=== PATIENT | male | born 1950 | race African-American/Black ===

== ENCOUNTER 2019-05-15 17:55 | Inpatient (IN) | payer OTHER, BC ==
[~2019-05-15] VITALS: Ht 177.8 cm; Wt 74.9 kg
[2019-05-15 18:01] VITALS: BP_SYST 111
--- NOTE | 2019-05-15 18:01 | NUR ---
Placed in room 3 . Placed on unloading checker, blood pressure machine and pulse oximeter. To gown for exam. Side rails up.
--- NOTE | 2019-05-15 18:05 | NUR ---
pt bib via ACLS for a possible 2 sec seizure, as stated per the pt's . Pt does not have a hx of seizures. PT is currently AAOx4. 02 is a 2l via NC. VSS. quality assurance monitor chassis placed.
--- NOTE | 2019-05-15 18:10 | NUR ---
ER Dr. Moise at bedside examining patient.
--- NOTE | 2019-05-15 18:40 | NUR ---
Urine specimen collected via straight cath and analyzed in ER. Results given to ER .
--- NOTE | 2019-05-15 19:00 | NUR ---
Patient transported to radiology via gurney, accompanied by straddle bug operator.
[2019-05-15 19:09] LABS: BASOPHILS % (AUTO) 0.2 % (0.0-2.0); EOSINOPHILS # (AUTO) 0.1 K/uL (0.0-0.4); EOSINOPHILS % (AUTO) 0.7 % (0.0-4.0); HEMATOCRIT 35.7 % (36-54); HEMOGLOBIN 11.9 g/dL (14.0-18.0); LYMPHOCYTES # (AUTO) 0.6 K/uL (1.0-5.5); LYMPHOCYTES % (AUTO) 3.8 % (20.5-51.5); MEAN CORPUSCULAR HEMOGLOBIN 30 pg (27-31); MEAN CORPUSCULAR HGB CONC 33 % (32-36); MEAN CORPUSCULAR VOLUME 89 fL (79.0-98.0); MONOCYTES # (AUTO) 0.8 K/uL (0.0-1.0); MONOCYTES % (AUTO) 4.8 % (1.7-9.3); NEUTROPHILS # (AUTO) 15.2 K/uL (1.8-7.7); NEUTROPHILS % (AUTO) 90.5 % (40.0-70.0); PLATELET COUNT (AUTO) 198 K/uL (130-430); RED BLOOD CELL COUNT(AUTO) 4.01 MIL/uL (4.2-6.2); RED CELL DISTRIBUTION WIDTH 14.3 % (9.0-15.0); WHITE BLOOD COUNT (AUTO) 16.8 K/uL (4.8-10.8)
--- NOTE | 2019-05-15 19:15 | NUR ---
pt returned for CT scan
--- NOTE | 2019-05-15 19:17 | NUR ---
report given to Saeed Nagel.
[2019-05-15 19:18] LABS: CALCIUM 8.2 mg/dL (8.4-11.0); CREATININE 1.83 mg/dL (0.55-1.30); POTASSIUM 3.3 mmol/L (3.5-5.1)
--- NOTE | 2019-05-15 19:25 | NUR ---
Wesley henriquez in ED - 05/15/19 at 1935 by [email or web address] Pt returned from CT
--- NOTE | 2019-05-15 19:35 | NUR ---
Family bedside with patient
[2019-05-15] MEDS ORDERED: cefTRIAXone 1 GM in D5W 50 ML IV ONE (20:00)
[2019-05-15] MEDS ORDERED: VANCOMYCIN HCL 1,000 MG in NS 250 ML IV ONE (20:00)
[2019-05-15] MEDS ORDERED: NACL 0.9% 1,000 ML IV ONE (20:00)
[2019-05-15 20:06] LABS: BILIRUBIN,URINE NEGATIVE (NEGATIVE); COLOR,URINE YELLOW (YELLOW); GLUCOSE,URINE NEGATIVE (NEGATIVE); KETONES,URINE NEGATIVE (NEGATIVE); LEUKOCYTE ESTERASE ,URINE 1+ (NEGATIVE); NITRITE, URINE POSITIVE (NEGATIVE); PH,URINE 5.5 (5.0-8.0); PROTEIN URINE TRACE (NEGATIVE); UROBILINOGEN,URINE 0.2 (0.2-1.0)
[2019-05-15 20:10] LABS: BLOOD, URINE TRACE (NEGATIVE)
[2019-05-15 20:11] LABS: CLARITY/URINE HAZY (CLEAR)
[2019-05-15 20:17] LABS: BACTERIA,URINE MANY /HPF (None Seen); RBC,URINE 0-3 /HPF (0-3)
[2019-05-15 20:18] LABS: MUCUS,URINE 1+ /LPF (None Seen)
[2019-05-15 20:20] LABS: BARBITURATE, URINE NEGATIVE (NEG <=200); BENZODIAZEPINE, URINE NEGATIVE (NEG <=150); CANNABINOID, URINE NEGATIVE (NEG <=50); COCAINE, URINE NEGATIVE (NEG <=150); METHAMPHETAMINES SCREEN,URINE NEGATIVE (NEG <=500); OPIATE, URINE POSITIVE (NEG <=100); PHENCYCLIDINE SCREEN,URINE NEGATIVE (NEG <=25); UR TRICYCLIC ANTIDEPRESSANTS NEGATIVE (NEG <=300); URINE AMPHETAMINE NEGATIVE (NEG <=500); URINE METHADONE NEGATIVE (NEG <=200); URINE OXYCODONE SCREEN NEGATIVE (NEG <=100); URINE PROPOXYPHENE SCREEN NEGATIVE (NEG <=300)
[2019-05-15] MEDS ORDERED: VANCOMYCIN HCL 1000 MG/VIAL IV ONE (20:28)
[2019-05-15] MEDS ORDERED: cefTRIAXone 1 GM VIAL ONE (20:29)
--- NOTE | 2019-05-15 20:44 | NUR ---
Pt resting in ED bed comfortably. Tolerating Fluids and Antibiotics well. No s/s Adverse effects.
[2019-05-15 20:45] LABS: TOTAL BILIRUBIN 0.5 mg/dL (0.0-1.0)
--- NOTE | 2019-05-15 21:33 | NUR ---
Pt resting in ED bed comfortably, no acute distress noted.
--- NOTE | 2019-05-15 22:40 | NUR ---
Pt Awake, alert, oriented. Assisted with urinal
--- NOTE | 2019-05-15 23:45 | NUR ---
Pt Family member Joanne Fischer Left phone number and informed staff that she will be going home. Will visit in the morning. [phone]
--- NOTE | 2019-05-16 00:12 | NUR ---
Pt assisted with urinal. Pt awake, alert, oriented no acute signs of distress.
--- NOTE | 2019-05-16 01:30 | NUR ---
Report Given to Vasquez (Jonathan)CELY
--- NOTE | 2019-05-16 01:30 | NUR ---
Patient will be admitted to care of [facility]. Admitted to Tele unit. Will go to room 130A. Belongings list completed. Complete and up to date summary report printed. SBAR report to be given at bedside with opportunity for questions.
--- NOTE | 2019-05-16 01:30 | NUR ---
Transfer to Telemetry via ACLS protocol. Licensed nurse present. IV present no signs or symptoms of infiltration.
--- NOTE | 2019-05-16 01:30 | NUR ---
ADMISSION NOTE Received patient from ER via gurney. Patient admitted with diagnosis of UROSEPSIS. Patient is awake, alert, oriented X 4. Patient oriented to hospital room, call light, toileting, pain management and safety-teach back done. Patient informed that BRIANNA JAVIER will be HIS nurse and that their room number is 130A. Personal belongings checked and Belongings List documented. Call light within reach.
--- NOTE | 2019-05-16 03:44 | NUR ---
PATIENT AWAKE ALERT USING THE URINAL NEEDED CALL VALDOVINOS WITH PATIENT .
--- NOTE | 2019-05-16 05:12 | NUR ---
NEW ORDERS FOR BLOOD SUGAR ACCU CHECKS AC & HS DR SUNNY CARR .
[2019-05-16 05:28] VITALS: BP_SYST 136
[2019-05-16] MEDS ORDERED: KCL 20 mEq in NS 1000 mL 1,000 ML IV ONE (06:49)
[2019-05-16] MEDS: KCL 20 mEq in NS 1000 mL 1,000 ML IV SCH ×3 (07:09→21:43)
[2019-05-16 07:20] LABS: BASOPHILS % (AUTO) 0.3 % (0.0-2.0); EOSINOPHILS # (AUTO) 0.3 K/uL (0.0-0.4); EOSINOPHILS % (AUTO) 2.4 % (0.0-4.0); HEMATOCRIT 29.8 % (36-54); HEMOGLOBIN 10.3 g/dL (14.0-18.0); LYMPHOCYTES # (AUTO) 1.6 K/uL (1.0-5.5); LYMPHOCYTES % (AUTO) 11.7 % (20.5-51.5); MEAN CORPUSCULAR HEMOGLOBIN 31 pg (27-31); MEAN CORPUSCULAR HGB CONC 35 % (32-36); MEAN CORPUSCULAR VOLUME 88 fL (79.0-98.0); MONOCYTES # (AUTO) 1.1 K/uL (0.0-1.0); MONOCYTES % (AUTO) 7.9 % (1.7-9.3); NEUTROPHILS # (AUTO) 10.7 K/uL (1.8-7.7); NEUTROPHILS % (AUTO) 77.7 % (40.0-70.0); PLATELET COUNT (AUTO) 186 K/uL (130-430); RED BLOOD CELL COUNT(AUTO) 3.37 MIL/uL (4.2-6.2); RED CELL DISTRIBUTION WIDTH 14.2 % (9.0-15.0); WHITE BLOOD COUNT (AUTO) 13.8 K/uL (4.8-10.8)
[2019-05-16 08:00] VITALS: BP_SYST 141
--- NOTE | 2019-05-16 08:00 | NUR ---
Note Pt sitting up in bed for breakfast. No SOB/resp distress or pain/discomfort was noted at this time. IV in left AC intact and patent infusing IVF's well. Urinal within reach. Tele unit attached and intact at this time. Call light within reach.
[2019-05-16 08:15] LABS: ALBUMIN 2.6 g/dL (3.4-4.8); CALCIUM 8.2 mg/dL (8.4-11.0); CREATININE 1.6 mg/dL (0.55-1.30); POTASSIUM 3.3 mmol/L (3.5-5.1); TOTAL BILIRUBIN 0.4 mg/dL (0.0-1.0)
[2019-05-16] MEDS: CEFEPIME 1 GM in D5W 50 ML IV SCH ×2 (08:42→21:36)
[2019-05-16 11:55] VITALS: BP_SYST 123
--- NOTE | 2019-05-16 12:00 | NUR ---
Note Pt resting in bed with family (4-5 family members) at bedside visiting at this time. Pt denies any needs at this time. Call light within reach.
[2019-05-16 16:00] VITALS: BP_SYST 117
--- NOTE | 2019-05-16 16:00 | NUR ---
Note Pt was seen and assessed by Dr Saez at this time at bedside. No needs noted. Pt's family all at bedside at this time. Call light within reach.
[2019-05-16] MEDS ORDERED: LYR50 PO ×2 (16:05)
[2019-05-16] MEDS ORDERED: LIP40 PO (16:05)
[2019-05-16] MEDS ORDERED: LEVO25TA7 PO (16:05)
[2019-05-16] MEDS ORDERED: HYDR12.55 PO (16:05)
[2019-05-16] MEDS ORDERED: LevALBUTEROL HCL 1.25 MG/0.5 ML *CONC.* VIAL.NEB (XOPENEX CONC.) INH PRN ×2 (16:15)
[2019-05-16] MEDS ORDERED: ACETAMINOPHEN 325 MG TABLET PO PRN (16:15)
[2019-05-16 17:58] VITALS: BP_SYST 123
--- NOTE | 2019-05-16 18:34 | NUR ---
Note Pt up with minimal assist to restroom. Pt's at bedside a this time. Pt was checked on q1' and PRN all shift for needs and care. No SOB/resp distress or pain/discomfort noted a this time. IV in left AC intact and patent infusing IVF's well. Call light within reach.
--- NOTE | 2019-05-16 19:35 | NUR ---
ROUNDS PATIENT RESTING COMFORTABLY IN BED, VITALS STABLE, DENIES ANY PAIN AND DISCOMFORT AT THIS TIME. ASSESSMENT DONE AND DOCUEMNTED. SEE FLOWSHEET. NEEDS ATTENDED TO. SAFETY MEASURES IN PLACED. CALL LIGHT PLACED WITHIN REACH.
[2019-05-16 20:00] VITALS: BP_SYST 142
--- NOTE | 2019-05-16 21:14 | NUR ---
MEDICATIONS DUE MEDICATIONS GIVE SCHEDULED, TOLERATED WELL. WILL CONTINUE TO MONITOR.
[2019-05-16] MEDS: PREGABALIN 25 MG CAPSULE (LYRICA) PO SCH (21:35)
[2019-05-16] MEDS: ATORVASTATIN 20 MG TABLET PO SCH (21:35)
[2019-05-16] MEDS: ENOXAPARIN SODIUM 30 MG/0.3 ML SYRINGE SUBCUT SCH (21:37)
[2019-05-16] MEDS: INSULIN REGULAR, HUMAN 100 UNITS/ML, 10 ML VIAL (humuLIN R) SUBCUT PRN (22:08)
[2019-05-16] MEDS ORDERED: LevALBUTEROL HCL 1.25 MG/0.5 ML *CONC.* VIAL.NEB (XOPENEX CONC.) INH SCH (23:00)
[2019-05-16] MEDS: LevALBUTEROL HCL 1.25 MG/0.5 ML *CONC.* VIAL.NEB (XOPENEX CONC.) INH SCH (23:52)
[2019-05-17] VITALS: BP_SYST 136
--- NOTE | 2019-05-17 00:16 | NUR ---
PATIENT RESTING: Patient resting quietly. No acute distress noted. Vital signs within normal range.
--- NOTE | 2019-05-17 04:17 | NUR ---
PATIENT RESTING: Patient resting quietly. No acute distress noted. Vital signs within normal range.
[2019-05-17] MEDS: LEVOTHYROXINE SODIUM 0.025 MG TABLET PO SCH (06:27)
--- NOTE | 2019-05-17 06:40 | NUR ---
CLOSING NOTES PATIENT AWAKE, VITALS STABLE, NO COMPLAINTS AT THIS TIME. ALL NEEDS ATTENDED TO. SAFETY MEASURES MAINTAINED. CALL LIGHT PLACED WITHIN REACH.
[2019-05-17 07:01] LABS: BASOPHILS % (AUTO) 0.3 % (0.0-2.0); EOSINOPHILS # (AUTO) 0.2 K/uL (0.0-0.4); HEMATOCRIT 27.9 % (36-54); HEMOGLOBIN 9.7 g/dL (14.0-18.0); LYMPHOCYTES # (AUTO) 1.1 K/uL (1.0-5.5); LYMPHOCYTES % (AUTO) 12.7 % (20.5-51.5); MEAN CORPUSCULAR HEMOGLOBIN 31 pg (27-31); MEAN CORPUSCULAR HGB CONC 35 % (32-36); MEAN CORPUSCULAR VOLUME 88 fL (79.0-98.0); MONOCYTES # (AUTO) 0.6 K/uL (0.0-1.0); MONOCYTES % (AUTO) 7.2 % (1.7-9.3); NEUTROPHILS # (AUTO) 6.9 K/uL (1.8-7.7); NEUTROPHILS % (AUTO) 77.8 % (40.0-70.0); PLATELET COUNT (AUTO) 151 K/uL (130-430); RED BLOOD CELL COUNT(AUTO) 3.17 MIL/uL (4.2-6.2); RED CELL DISTRIBUTION WIDTH 14.2 % (9.0-15.0); WHITE BLOOD COUNT (AUTO) 8.8 K/uL (4.8-10.8)
[2019-05-17] MEDS: LevALBUTEROL HCL 1.25 MG/0.5 ML *CONC.* VIAL.NEB (XOPENEX CONC.) INH SCH ×3 (07:10→23:20)
[2019-05-17 07:22] LABS: CREATININE 1.53 mg/dL (0.55-1.30); POTASSIUM 3.5 mmol/L (3.5-5.1)
[2019-05-17 08:00] VITALS: BP_SYST 143
[2019-05-17] MEDS: KCL 20 mEq in NS 1000 mL 1,000 ML IV SCH ×2 (08:00→17:46)
--- NOTE | 2019-05-17 08:00 | NUR ---
Note Pt assisted OOB to restroom with steady gait. Pt denies any SOB/resp distress or pain/discomfort at this time. Tele unit attached and intact at this time. IV in right hand intact and patent infusing IVF's well. Pt had poor appetite for breakfast at this time. No needs noted. Call light within reach.
[2019-05-17] MEDS: CEFEPIME 1 GM in D5W 50 ML IV SCH ×2 (08:41→22:26)
[2019-05-17] MEDS: PREGABALIN 25 MG CAPSULE (LYRICA) PO SCH ×2 (08:41→22:17)
--- NOTE | 2019-05-17 11:55 | NUR ---
Note Pt resting in bed eating brought in by his and son, who are at bedside visiting at this time. Pt denies any needs at this time. Call light within reach.
[2019-05-17 12:36] VITALS: BP_SYST 136
--- NOTE | 2019-05-17 15:10 | NUR ---
Note Pt resting in bed and denies any needs at this time. Call light within reach.
--- NOTE | 2019-05-17 16:10 | NUR ---
Note Dr Saez at bedside and answering questions/concerns at this time. Pt's tele unit was dc'd and returned to cardiac monitor. Pt's and daughter at bedside visiting for the last 4 hours. Pt denies any SOB/resp distress or pain/discomfort at this time. Call light within reach.
[2019-05-17 16:45] VITALS: BP_SYST 130
--- NOTE | 2019-05-17 18:15 | NUR ---
Note Pt was checked on q1' and PRN all shift for needs and care. IV in right hand intact and patent infusing IVF's well. Pt ambulatory to restroom with IV pole. No SOB/resp distress or pain/discomfort noted at this time. No needs noted at this time. Call light within reach.
[2019-05-17 20:00] VITALS: BP_SYST 135
--- NOTE | 2019-05-17 22:00 | NUR ---
PT RECIEVED ALARM AND ORIENTED X3 .PT HAVE NS AT 100CC/HR . PT TOOK FLU SHORTH , VITAL SIGN STABLE . WILL CONTINUE TO MONITOR PT .
[2019-05-17] MEDS: ATORVASTATIN 20 MG TABLET PO SCH (22:15)
[2019-05-17] MEDS: ENOXAPARIN SODIUM 30 MG/0.3 ML SYRINGE SUBCUT SCH (22:19)
--- NOTE | 2019-05-18 | NUR ---
PT SLEEPING . IV FEEL OUT HIS HAND , HEPLOCK REINSERTED . IV FLUID CONTINUE.
[2019-05-18 00:23] VITALS: BP_SYST 112
[2019-05-18] MEDS: LEVOTHYROXINE SODIUM 0.025 MG TABLET PO SCH (06:39)
[2019-05-18 07:37] LABS: BASOPHILS % (AUTO) 0.3 % (0.0-2.0); EOSINOPHILS # (AUTO) 0.1 K/uL (0.0-0.4); EOSINOPHILS % (AUTO) 0.9 % (0.0-4.0); HEMATOCRIT 29.8 % (36-54); HEMOGLOBIN 10.2 g/dL (14.0-18.0); LYMPHOCYTES # (AUTO) 1.1 K/uL (1.0-5.5); LYMPHOCYTES % (AUTO) 11.2 % (20.5-51.5); MEAN CORPUSCULAR HEMOGLOBIN 30 pg (27-31); MEAN CORPUSCULAR HGB CONC 34 % (32-36); MEAN CORPUSCULAR VOLUME 89 fL (79.0-98.0); MONOCYTES # (AUTO) 0.5 K/uL (0.0-1.0); MONOCYTES % (AUTO) 5.3 % (1.7-9.3); NEUTROPHILS # (AUTO) 8.5 K/uL (1.8-7.7); NEUTROPHILS % (AUTO) 82.3 % (40.0-70.0); PLATELET COUNT (AUTO) 181 K/uL (130-430); RED BLOOD CELL COUNT(AUTO) 3.36 MIL/uL (4.2-6.2); RED CELL DISTRIBUTION WIDTH 14.3 % (9.0-15.0); WHITE BLOOD COUNT (AUTO) 10.3 K/uL (4.8-10.8)
[2019-05-18 07:47] LABS: CALCIUM 7.9 mg/dL (8.4-11.0); CREATININE 1.52 mg/dL (0.55-1.30); POTASSIUM 3.5 mmol/L (3.5-5.1)
[2019-05-18] MEDS: LevALBUTEROL HCL 1.25 MG/0.5 ML *CONC.* VIAL.NEB (XOPENEX CONC.) INH SCH ×3 (07:52→23:16)
[2019-05-18 08:00] VITALS: BP_SYST 116
--- NOTE | 2019-05-18 08:00 | NUR ---
ASSUMPTION OF CARE: RECEIVED PT ASLEEP, EASILY AROUSED VIA VERBAL STIMULI, DX:RISK FOR FLUID DEFICIT, R/T UROSEPSIS, VSS, AFEBRILE, ORIENTED X4, BREATH SOUNDS ARE CLEAR, BREATHING UNLABORED, IV SITE INTACT, PATENT, NO REDNESS OR SWELLING, CALL LIGHT PLACED WITHIN REACH, WILL CONT' WITH POC.`
--- NOTE | 2019-05-18 08:00 | NUR ---
GLUCOSE MONITORING: BLOOD SUGAR [id number], 2 UNITS REGULAR INSULIN GIVEN SQ, TOLERATING WELL, AT BEDSIDE, CALL LIGHT PLACED WITHIN REACH, WILL CONT' TO MONITOR AND ASSESS. Addendum: 05/18/19 at 1631 by Danielle Acosta RN WRONG TIME
--- NOTE | 2019-05-18 09:00 | NUR ---
ACADEMIC ADVISOR: MORNING MEDS GIVEN, PER ORDERED BY Niurka, TOLERATED WELL, WILL CONT' WITH POC.
[2019-05-18] MEDS: PREGABALIN 25 MG CAPSULE (LYRICA) PO SCH ×2 (10:19→21:51)
[2019-05-18] MEDS: CEFEPIME 1 GM in D5W 50 ML IV SCH ×2 (10:20→21:53)
[2019-05-18] MEDS: KCL 20 mEq in NS 1000 mL 1,000 ML IV SCH ×2 (10:24→23:00)
--- NOTE | 2019-05-18 11:30 | NUR ---
GLUCOSE MONITORING: BLOOD SUGAR EYOKO=127, 2 UNITS REGULAR INSULIN GIVEN SQ, TOLERATING WELL, AT BEDSIDE, CALL LIGHT PLACED WITHIN REACH, WILL CONT' TO MONITOR AND ASSESS.
[2019-05-18] MEDS: INSULIN REGULAR, HUMAN 100 UNITS/ML, 10 ML VIAL (humuLIN R) SUBCUT PRN ×2 (11:35→17:59)
[2019-05-18 12:49] VITALS: BP_SYST 112
--- NOTE | 2019-05-18 16:00 | NUR ---
NURSES NOTES: PT RESTING IN POSITION OF COMFORT, AT BEDSIDE, CALL LIGHT WITHIN REACH, NO C/O PAIN, NO S/S OF DISTRESS, WILL CONT' TO MONITOR.
[2019-05-18 16:47] VITALS: BP_SYST 108
[2019-05-18 20:00] VITALS: BP_SYST 100
[2019-05-18] MEDS: ENOXAPARIN SODIUM 30 MG/0.3 ML SYRINGE SUBCUT SCH (21:49)
[2019-05-18] MEDS: ATORVASTATIN 20 MG TABLET PO SCH (21:52)
--- NOTE | 2019-05-18 22:00 | NUR ---
pt recieved awake alert and oriented . skin intakect . vital sign stable . pt getting ivns 100cc/hr . pt have no c/o pain `. pt will be monitored for pain
[2019-05-18] MEDS ORDERED: MEROPENEM 500 MG in NS 50 ML IV SCH (22:30)
--- NOTE | 2019-05-19 | NUR ---
pt sleeping . continue to monitor pt for confort .
--- NOTE | 2019-05-19 04:14 | NUR ---
pt awake , no c/o pain iv ns 20kcl potassium 100cc/hr. vital sign monitored .
[2019-05-19] MEDS ORDERED: MEROPENEM 500 MG in NS 50 ML IV SCH (06:00)
[2019-05-19] MEDS: LEVOTHYROXINE SODIUM 0.025 MG TABLET PO SCH (07:02)
[2019-05-19] MEDS: LevALBUTEROL HCL 1.25 MG/0.5 ML *CONC.* VIAL.NEB (XOPENEX CONC.) INH SCH ×2 (07:32→15:36)
[2019-05-19 08:00] VITALS: BP_SYST 102
--- NOTE | 2019-05-19 09:00 | NUR ---
RIDING COACH: MORNING MEDS GIVEN, PER ORDERED BY Niurka, TOLERATED WELL, WILL CONT' WITH POC.
[2019-05-19] MEDS: PREGABALIN 25 MG CAPSULE (LYRICA) PO SCH (10:05)
[2019-05-19] MEDS: KCL 20 mEq in NS 1000 mL 1,000 ML IV SCH ×2 (10:05)
--- NOTE | 2019-05-19 12:00 | NUR ---
GLUCOSE MONITORING: BLOOD SUGAR XCDCL=[id number], NO COVERAGE REQUIRED, EATING AND TOLERATING DIET WELL, AT BEDSIDE, CALL LIGHT PLACED WITHIN REACH, WILL CONT' TO MONITOR AND ASSESS.
[2019-05-19 12:40] VITALS: BP_SYST 107
--- NOTE | 2019-05-19 13:00 | NUR ---
VISIT: AT BEDSIDE FOR ASSESSMENT OF PT, DISCUSSED POC, PT VERBALIZES UNDERSTANDING, INSIDE ROOM VISITING WITH , INFORM OF TX PLAN AT THIS TIME, WILL CONT' TO MONITOR AND ASSESS.
--- NOTE | 2019-05-19 16:09 | NUR ---
DC PLANNING: DC PLAN TO SNF. CM SPOKE WITH PATIENT AND PATIENT'S AT BEDSIDE (ADDIE) REGARDING DC TO SNF ([facility]). PATIENT AND PT'S STATED DR. CORREA HAD ALREADY DISCUSSED WITH THEM REGARDING SNF FOR SHORT TERM. PT AND PT'S AGREED TO THE DISCHARGE TO SNF ([facility]) TODAY. RUG DRY ROOM ATTENDANT WILL CALL FOR EARLY DINNER FOR PATIENT AND SETUP BLS TRANSPORTATION. SPOKE WITH DANG (COST ESTIMATING ENGINEER @ [facility]) , PATIENT IS ACCEPTED AND ROOM NUMBER IS 48 ISOLATION BED.
[2019-05-19 16:42] VITALS: BP_SYST 113
--- NOTE | 2019-05-19 18:00 | NUR ---
DISCHARGE: PT DISCHARGED TO [facility], REPORT GIVEN TO NURSE ULICES TA, WILL GO TO ROOM 48, AT BEDSIDE AND NOTIFIED OF TRANSFER, EMT AT BEDSIDE FOR TRANSPORT TO FACILITY, CONDITION IS STABLE, ALL BELONGINGS ACCOUNTED FOR AND RETURNED TO PT, WILL CONT' TO MONITOR AND ASSESS.
== END 2019-05-19 18:15 | DRG 871 ==
LOC: SED 17:55 → STU 05-16 01:30 → SMU 05-17 16:10
PROVIDERS: ADMIT Family Medicine; ATTEND Family Medicine
DX: A41.9 Sepsis, unspecified organism (principal); G93.41 Metabolic encephalopathy; N17.0 Acute kidney failure with tubular necrosis; N39.0 Urinary tract infection, site not specified; D64.9 Anemia, unspecified; J44.9 Chronic obstructive pulmonary disease, unspecified; E86.0 Dehydration; F17.210 Nicotine dependence, cigarettes, uncomplicated; Z85.46 Personal history of malignant neoplasm of prostate; Z85.528 Personal history of other malignant neoplasm of kidney; Z90.5 Acquired absence of kidney; Z79.899 Other long term (current) drug therapy
CPT/HCPCS: 36415; 70450-TC; 71045; 80048; 80053; 80307; 81000-TC; 82962; 83605; 83735-TC; 83880; 84484; 85025; 87040-TC; 87086; 87186-TC; 93005; 94640; 94760; 96365; 96366; 96367; 97116-GP; 99285; G0378; J0692; J0696; J1650; J1815; J2185; J3370; J3480; J7060; J7612

== ENCOUNTER 2019-08-05 05:37 | Inpatient (IN) | payer OTHER, BC ==
[~2019-08-05] VITALS: Ht 180.3 cm; Wt 76.7 kg
[~2019-08-05 05:37] MED LIST: HYDR12.55 PO; LEVO25TA7 PO; LIP40 PO; LYR50 PO
[2019-08-05 05:50] VITALS: BP_SYST 100
[2019-08-05] MEDS ORDERED: MORPHINE 4 MG/ML INJ. SYRINGE IVP ONE (06:30)
[2019-08-05] MEDS ORDERED: TRAM50TA2 PO (08:29)
[2019-08-05 09:01] LABS: BASOPHILS # (AUTO) 0.1 K/uL (0.0-0.2); BASOPHILS % (AUTO) 0.5 % (0.0-2.0); EOSINOPHILS # (AUTO) 1.5 K/uL (0.0-0.4); EOSINOPHILS % (AUTO) 12.7 % (0.0-4.0); HEMATOCRIT 35.1 % (36-54); HEMOGLOBIN 11.7 g/dL (14.0-18.0); LYMPHOCYTES # (AUTO) 1.2 K/uL (1.0-5.5); LYMPHOCYTES % (AUTO) 10.4 % (20.5-51.5); MEAN CORPUSCULAR HEMOGLOBIN 31 pg (27-31); MEAN CORPUSCULAR HGB CONC 34 % (32-36); MEAN CORPUSCULAR VOLUME 91 fL (79.0-98.0); MONOCYTES # (AUTO) 0.6 K/uL (0.0-1.0); MONOCYTES % (AUTO) 5.1 % (1.7-9.3); NEUTROPHILS # (AUTO) 8.3 K/uL (1.8-7.7); NEUTROPHILS % (AUTO) 71.3 % (40.0-70.0); PLATELET COUNT (AUTO) 146 K/uL (130-430); RED BLOOD CELL COUNT(AUTO) 3.84 MIL/uL (4.2-6.2); RED CELL DISTRIBUTION WIDTH 15.6 % (9.0-15.0); WHITE BLOOD COUNT (AUTO) 11.6 K/uL (4.8-10.8)
[2019-08-05 09:21] LABS: ALBUMIN 3.3 g/dL (3.4-4.8); CALCIUM 9.2 mg/dL (8.4-11.0); CREATININE 1.93 mg/dL (0.55-1.30); POTASSIUM 3.9 mmol/L (3.5-5.1); TOTAL BILIRUBIN 0.3 mg/dL (0.0-1.0)
[2019-08-05] MEDS ORDERED: MORPHINE 2 MG/ML INJ. SYRINGE IVP PRN (10:30)
[2019-08-05 11:16] VITALS: BP_SYST 119
[2019-08-05] MEDS ORDERED: INSU100V3 SQ (13:16)
[2019-08-05] MEDS ORDERED: ONDANSETRON HCL 4 MG/2 ML VIAL IVP PRN (13:30)
[2019-08-05] MEDS ORDERED: ACETAMINOPHEN 325 MG TABLET PO PRN (13:30)
[2019-08-05] MEDS ORDERED: HYDROcodone/ACETAMIN 5-325 MG TAB (NORCO/ VICODIN) PO PRN (13:30)
[2019-08-05] MEDS ORDERED: IPRATROPIUM/ALBUTEROL SULFATE 3 ML AMPUL.NEB (DUONEB) INH PRN (13:45)
[2019-08-05] MEDS ORDERED: ZOLPIDEM TARTRATE 5 MG TABLET PO PRN (13:45)
[2019-08-05] MEDS ORDERED: D5W 1,000 ML IV PRN (14:00)
[2019-08-05] MEDS ORDERED: DEXTROSE 50%-WATER 50 ML DISP.SYRIN IVP PRN (14:00)
[2019-08-05] MEDS ORDERED: GLUCOSE 15 GM GEL (in 37.5 GM TUBE) PO PRN (14:00)
[2019-08-05 14:13] VITALS: BP_SYST 119
[2019-08-05 16:00] VITALS: BP_SYST 104
[2019-08-05] MEDS: INSULIN NPH/REGULAR 70-30, 100 UNITS/ML, 10 ML VIAL SUBCUT SCH (16:27)
[2019-08-05 20:00] VITALS: BP_SYST 109
[2019-08-05] MEDS: INSULIN LISPRO SLIDING SCALE 100 UNITS/ML VIAL (humaLOG) SUBCUT PRN (20:16)
[2019-08-05] MEDS ORDERED: INSULIN Lispro Prot/Lispro MIX 75-25, 100 UNITS/ML, 10 ML VIAL SQ SCH (21:00)
[2019-08-06 00:30] VITALS: BP_SYST 105
[2019-08-06] MEDS: LEVOTHYROXINE SODIUM 0.05 MG TABLET PO SCH (06:02)
[2019-08-06] MEDS: INSULIN NPH/REGULAR 70-30, 100 UNITS/ML, 10 ML VIAL SUBCUT SCH ×2 (06:06→18:03)
[2019-08-06] MEDS: INSULIN LISPRO SLIDING SCALE 100 UNITS/ML VIAL (humaLOG) SUBCUT PRN ×2 (06:09→18:04)
[2019-08-06 06:43] LABS: CALCIUM 9.1 mg/dL (8.4-11.0); CREATININE 1.71 mg/dL (0.55-1.30); POTASSIUM 3.9 mmol/L (3.5-5.1)
[2019-08-06 08:00] VITALS: BP_SYST 100
[2019-08-06] MEDS: PREGABALIN 25 MG CAPSULE (LYRICA) PO SCH (08:26)
[2019-08-06] MEDS: FAMOTIDINE 20 MG TABLET PO SCH (08:26)
[2019-08-06 12:33] VITALS: BP_SYST 100
[2019-08-06 16:54] VITALS: BP_SYST 107
[2019-08-06 20:00] VITALS: BP_SYST 95
[2019-08-07 01:44] VITALS: BP_SYST 104
[2019-08-07] MEDS: LEVOTHYROXINE SODIUM 0.05 MG TABLET PO SCH (06:41)
[2019-08-07] MEDS: INSULIN NPH/REGULAR 70-30, 100 UNITS/ML, 10 ML VIAL SUBCUT SCH ×2 (06:45→17:18)
[2019-08-07 08:00] VITALS: BP_SYST 104
[2019-08-07] MEDS: FAMOTIDINE 20 MG TABLET PO SCH (08:13)
[2019-08-07] MEDS: PREGABALIN 25 MG CAPSULE (LYRICA) PO SCH (08:13)
[2019-08-07 13:06] VITALS: BP_SYST 107
[2019-08-07 16:19] VITALS: BP_SYST 102
[2019-08-07] MEDS: INSULIN LISPRO SLIDING SCALE 100 UNITS/ML VIAL (humaLOG) SUBCUT PRN (17:22)
[2019-08-07 20:00] VITALS: BP_SYST 101
[2019-08-08 00:24] VITALS: BP_SYST 106
[2019-08-08] MEDS: LEVOTHYROXINE SODIUM 0.05 MG TABLET PO SCH (06:35)
[2019-08-08] MEDS: INSULIN NPH/REGULAR 70-30, 100 UNITS/ML, 10 ML VIAL SUBCUT SCH (06:47)
[2019-08-08 08:00] VITALS: BP_SYST 102
[2019-08-08] MEDS: FAMOTIDINE 20 MG TABLET PO SCH (09:10)
[2019-08-08] MEDS: PREGABALIN 25 MG CAPSULE (LYRICA) PO SCH (09:10)
[2019-08-08 12:16] VITALS: BP_SYST 93
[2019-08-08 12:19] VITALS: BP_SYST 93
== END 2019-08-08 14:20 | disposition home health service (06) | DRG 535 ==
LOC: SED 05:37 → STU 10:50 → SMU 08-06 20:44
PROVIDERS: ADMIT Internal Medicine; ATTEND Internal Medicine
DX: S72.112A Displaced fracture of greater trochanter of left femur, initial encounter for closed fracture (principal); N17.0 Acute kidney failure with tubular necrosis; E03.9 Hypothyroidism, unspecified; E11.22 Type 2 diabetes mellitus with diabetic chronic kidney disease; E78.5 Hyperlipidemia, unspecified; F17.210 Nicotine dependence, cigarettes, uncomplicated; G89.29 Other chronic pain; M54.5 Low back pain; W18.39XA Other fall on same level, initial encounter; I12.9 Hypertensive chronic kidney disease with stage 1 through stage 4 chronic kidney disease, or unspecified chronic kidney disease; N18.9 Chronic kidney disease, unspecified; Z85.46 Personal history of malignant neoplasm of prostate; Z85.51 Personal history of malignant neoplasm of bladder; Z79.899 Other long term (current) drug therapy; Z85.528 Personal history of other malignant neoplasm of kidney; Z90.5 Acquired absence of kidney; Y93.89 Activity, other specified; Y92.89 Other specified places as the place of occurrence of the external cause; Y99.8 Other external cause status
CPT/HCPCS: 36415; 71045; 72192-TC; 73521; 80048; 80053; 82550-TC; 82962; 85025; 87081; 93005; 96374; 97110-GP; 97530-GP; 99285; G0378; J1815; J2270

== ENCOUNTER 2020-06-09 14:46 | Emergency (ER) | payer OTHER, BC, SELFPAY ==
[~2020-06-09] VITALS: Ht 180.3 cm; Wt 72.6 kg
[~2020-06-09 14:46] MED LIST changes: +INSU100V3 SQ
[2020-06-09 14:50] VITALS: BP_SYST 113
--- NOTE | 2020-06-09 14:50 | NUR ---
PT TO BED 6, GOWNED ATTACHED TO MONITOR
--- NOTE | 2020-06-09 14:55 | NUR ---
ER DR. BERNAL AT THE BEDSIDE EVALUATING PT
--- NOTE | 2020-06-09 15:00 | NUR ---
PT BIBA AFTER HAVING [facility] AT HOME WITH LOC AND LOW BP ON SCENE 80/40. PT PRESENTS AAOX4, V/S STABLE
--- NOTE | 2020-06-09 15:32 | NUR ---
LAB AT THE BEDSIDE FOR BLOOD DRAW
[2020-06-09 15:49] LABS: BASOPHILS # (AUTO) 0.1 K/uL (0.0-0.2); BASOPHILS % (AUTO) 0.9 % (0.0-2.0); EOSINOPHILS # (AUTO) 1.2 K/uL (0.0-0.4); EOSINOPHILS % (AUTO) 17.3 % (0.0-4.0); HEMATOCRIT 29.6 % (36-54); HEMOGLOBIN 10.1 g/dL (14.0-18.0); LYMPHOCYTES # (AUTO) 0.6 K/uL (1.0-5.5); LYMPHOCYTES % (AUTO) 8.5 % (20.5-51.5); MEAN CORPUSCULAR HEMOGLOBIN 31 pg (27-31); MEAN CORPUSCULAR HGB CONC 34 % (32-36); MEAN CORPUSCULAR VOLUME 89 fL (79.0-98.0); MONOCYTES # (AUTO) 0.4 K/uL (0.0-1.0); MONOCYTES % (AUTO) 5.5 % (1.7-9.3); NEUTROPHILS # (AUTO) 4.7 K/uL (1.8-7.7); NEUTROPHILS % (AUTO) 67.8 % (40.0-70.0); PLATELET COUNT (AUTO) 194 K/uL (130-430); RED BLOOD CELL COUNT(AUTO) 3.31 MIL/uL (4.2-6.2); RED CELL DISTRIBUTION WIDTH 14.5 % (9.0-15.0); WHITE BLOOD COUNT (AUTO) 6.9 K/uL (4.8-10.8)
[2020-06-09 16:00] LABS: CALCIUM 8.9 mg/dL (8.4-11.0); CREATININE 1.89 mg/dL (0.55-1.30); POTASSIUM 3.4 mmol/L (3.5-5.1)
[2020-06-09 16:07] LABS: TOTAL BILIRUBIN 0.2 mg/dL (0.0-1.0)
--- NOTE | 2020-06-09 16:32 | NUR ---
Patient transported to radiology via GURNEY, accompanied by STAFF.
[2020-06-09 17:38] VITALS: BP_SYST 130
== END 2020-06-09 17:40 | disposition home or self-care (01) ==
LOC: SED 14:46
DX: R55 Syncope and collapse (principal); Z85.46 Personal history of malignant neoplasm of prostate; Z20.822 Contact with and (suspected) exposure to COVID-19
CPT/HCPCS: 36415; 70450-TC; 71045; 72170-TC; 76376; 80053; 82550-TC; 83880; 84484; 85025; 93005; 99285

== ENCOUNTER 2021-12-17 10:55 | Inpatient (IN) | payer OTHER, BC ==
[2021-12-17] VITALS (11 sets, daily range): BP systolic 70–118
[~2021-12-17] VITALS: Ht 175.3 cm; Wt 67.6 kg
[2021-12-17] MEDS ORDERED: NACL 0.9% 2,000 ML IV ONE (11:00)
[2021-12-17 11:18] LABS: BASOPHILS % (AUTO) 0.1 % (0.0-2.0); EOSINOPHILS % (AUTO) 0.2 % (0.0-4.0); HEMATOCRIT 34.4 % (36-54); HEMOGLOBIN 11.5 g/dL (14.0-18.0); LYMPHOCYTES # (AUTO) 0.5 K/uL (1.0-5.5); LYMPHOCYTES % (AUTO) 2.9 % (20.5-51.5); MEAN CORPUSCULAR HEMOGLOBIN 31 pg (27-31); MEAN CORPUSCULAR HGB CONC 33 % (32-36); MEAN CORPUSCULAR VOLUME 92 fL (79.0-98.0); MONOCYTES # (AUTO) 0.7 K/uL (0.0-1.0); NEUTROPHILS # (AUTO) 17.2 K/uL (1.8-7.7); NEUTROPHILS % (AUTO) 92.8 % (40.0-70.0); PLATELET COUNT (AUTO) 124 K/uL (130-430); RED BLOOD CELL COUNT(AUTO) 3.73 MIL/uL (4.2-6.2); RED CELL DISTRIBUTION WIDTH 15.8 % (9.0-15.0); WHITE BLOOD COUNT (AUTO) 18.6 K/uL (4.8-10.8)
[2021-12-17 11:34] LABS: ANION GAP 15 (5-15); CHLORIDE 103 mmol/L (98-107); CREATININE 2.72 mg/dL (0.55-1.30); GLUCOSE 199 mg/dL (70-99); POTASSIUM 3.8 mmol/L (3.5-5.1); SODIUM SERUM 135 mmol/L (136-145); UREA NITROGEN, BLOOD 33 mg/dL (8-21)
[2021-12-17 11:45] LABS: ALANINE AMINOTRANSFERASE 146 U/L (12-78); ALBUMIN 2.4 g/dL (3.4-4.8); ASPARTATE AMINOTRANSFERASE 149 U/L (10-37); LIPASE 16 U/L (73-393); TOTAL BILIRUBIN 1.1 mg/dL (0.0-1.0)
[2021-12-17] MEDS ORDERED: PIPERACILLIN/TAZO 3.375 GM in NS 50 ML IV ONE (12:00)
[2021-12-17] MEDS ORDERED: VANCOMYCIN HCL 1,000 MG in NS 250 ML IV ONE (12:00)
[2021-12-17] MEDS ORDERED: NOREPINEPHRINE BITARTRATE 4 MG in NS 246 ML IV ONE (12:15)
[2021-12-17] MEDS ORDERED: PIPERACILLIN/TAZOBACTAM 3.375 GM/VIAL (ZOSYN) IV ONE (12:41)
[2021-12-17] MEDS ORDERED: NOREPINEPHRINE 4 MG/4 ML VIAL IV ONE (12:41)
[2021-12-17] MEDS ORDERED: VANCOMYCIN HCL 1000 MG/VIAL IV ONE (12:41)
[2021-12-17 12:52] LABS: CLARITY/URINE TURBID (CLEAR); COLOR,URINE BROWN (YELLOW)
[2021-12-17 12:53] LABS: BILIRUBIN,URINE NEGATIVE (NEGATIVE); BLOOD, URINE 3+ (NEGATIVE); GLUCOSE,URINE NEGATIVE (NEGATIVE); KETONES,URINE NEGATIVE (NEGATIVE); LEUKOCYTE ESTERASE ,URINE 3+ (NEGATIVE); NITRITE, URINE POSITIVE (NEGATIVE); PH,URINE 8.5 (5.0-8.0); PROTEIN URINE 2+ (NEGATIVE); UROBILINOGEN,URINE 0.2 (0.2-1.0)
[2021-12-17 12:54] LABS: BACTERIA,URINE MANY /HPF (None Seen); RBC,URINE >100 /HPF (0-3); WBC,URINE >100 /HPF (0-3)
[2021-12-17] MEDS ORDERED: VASOPRESSIN 40 UNITS in NS 38 ML IV PRN (13:15)
[2021-12-17] MEDS: D5/0.45 NS 1,000 ML IV SCH ×2 (15:30→22:24)
[2021-12-17] MEDS: NOREPINEPHRINE BITARTRATE 16 MG in D5W 234 ML IV PRN (16:45)
[2021-12-17] MEDS: PIPERACILLIN/TAZOBACTAM 2.25 GM in NS 50 ML IV SCH ×2 (17:37→23:40)
[2021-12-17] MEDS ORDERED: NALOXONE HCL 0.4 MG/ML AMP (NARCAN) IVP PRN ×2 (18:00)
[2021-12-17] MEDS ORDERED: ONDANSETRON HCL 4 MG/2 ML VIAL IVP PRN (18:00)
[2021-12-17] MEDS ORDERED: LORazepam 2 MG/ML VIAL IVP PRN (18:00)
[2021-12-17] MEDS ORDERED: HYDROcodone/ACETAMIN 5-325 MG TAB (NORCO/ VICODIN) PO PRN (18:00)
[2021-12-17] MEDS ORDERED: ACETAMINOPHEN 325 MG TABLET PO PRN (18:00)
[2021-12-17] MEDS ORDERED: SODIUM BICARBONATE 8.4% JECT 50 MEQ/50 ML SYRINGE IVP ONE (18:45)
[2021-12-17] MEDS: HYDROcodone/ACETAMIN 10-325 MG TAB PO PRN ×2 (18:52→23:50)
[2021-12-17] MEDS: ATORVASTATIN 20 MG TABLET PO SCH (20:37)
[2021-12-17] MEDS: INSULIN REGULAR, HUMAN 100 UNITS/ML, 10 ML VIAL (humuLIN R) SUBCUT PRN (20:38)
[2021-12-17] MEDS ORDERED: INSULIN Lispro Prot/Lispro MIX 75-25, 100 UNITS/ML, 10 ML VIAL SQ SCH (21:00)
[2021-12-17 22:35] LABS: RED BLOOD CELL COUNT(AUTO) 3.84 MIL/uL (4.2-6.2); RED CELL DISTRIBUTION WIDTH 15.9 % (9.0-15.0)
[2021-12-17 22:47] LABS: HEMATOCRIT 35.2 % (36-54); HEMOGLOBIN 11.7 g/dL (14.0-18.0); MEAN CORPUSCULAR HEMOGLOBIN 31 pg (27-31); MEAN CORPUSCULAR HGB CONC 33 % (32-36); MEAN CORPUSCULAR VOLUME 92 fL (79.0-98.0); PLATELET COUNT (AUTO) 120 K/uL (130-430); WHITE BLOOD COUNT (AUTO) 14.8 K/uL (4.8-10.8)
[2021-12-17 22:49] LABS: ALANINE AMINOTRANSFERASE 108 U/L (12-78); ALBUMIN 2.1 g/dL (3.4-4.8); ANION GAP 16 (5-15); ASPARTATE AMINOTRANSFERASE 80 U/L (10-37); CALCIUM 8.5 mg/dL (8.4-11.0); CHLORIDE 104 mmol/L (98-107); CREATININE 2.48 mg/dL (0.55-1.30); GLUCOSE 207 mg/dL (70-99); POTASSIUM 3.9 mmol/L (3.5-5.1); SODIUM SERUM 137 mmol/L (136-145); TOTAL BILIRUBIN 1.1 mg/dL (0.0-1.0); UREA NITROGEN, BLOOD 37 mg/dL (8-21)
[2021-12-18] VITALS (24 sets, daily range): BP systolic 86–151
[2021-12-18 00:01] LABS: BAND % (MANUAL) 52 % (0-6); BASOPHILS % (MANUAL) 0 % (0-2); EOSINOPHILS % (MANUAL) 0 % (0-7); LYMPHOCYTES % (MANUAL) 2 % (20-46); MONOCYTES % (MANUAL) 6 % (0-11)
[2021-12-18] MEDS: D5/0.45 NS 1,000 ML IV SCH ×3 (05:14→19:17)
[2021-12-18] MEDS: PIPERACILLIN/TAZOBACTAM 2.25 GM in NS 50 ML IV SCH ×4 (05:34→23:55)
[2021-12-18] MEDS: LEVOTHYROXINE SODIUM 0.025 MG TABLET PO SCH (06:22)
[2021-12-18] MEDS: INSULIN REGULAR, HUMAN 100 UNITS/ML, 10 ML VIAL (humuLIN R) SUBCUT PRN ×4 (06:24→21:03)
[2021-12-18 07:01] LABS: EOSINOPHILS % (AUTO) 0.2 % (0.0-4.0); HEMATOCRIT 36.2 % (36-54); HEMOGLOBIN 12.3 g/dL (14.0-18.0); LYMPHOCYTES # (AUTO) 0.4 K/uL (1.0-5.5); LYMPHOCYTES % (AUTO) 3.1 % (20.5-51.5); MEAN CORPUSCULAR HEMOGLOBIN 31 pg (27-31); MEAN CORPUSCULAR HGB CONC 34 % (32-36); MEAN CORPUSCULAR VOLUME 90 fL (79.0-98.0); MONOCYTES # (AUTO) 0.3 K/uL (0.0-1.0); MONOCYTES % (AUTO) 2.1 % (1.7-9.3); NEUTROPHILS % (AUTO) 94.6 % (40.0-70.0); PLATELET COUNT (AUTO) 100 K/uL (130-430); RED BLOOD CELL COUNT(AUTO) 4.01 MIL/uL (4.2-6.2); RED CELL DISTRIBUTION WIDTH 15.8 % (9.0-15.0); WHITE BLOOD COUNT (AUTO) 13.7 K/uL (4.8-10.8)
[2021-12-18 07:54] LABS: ANION GAP 13 (5-15); CALCIUM 8.1 mg/dL (8.4-11.0); CHLORIDE 102 mmol/L (98-107); CREATININE 2.39 mg/dL (0.55-1.30); GLUCOSE 230 mg/dL (70-99); PHOSPHORUS 3.2 mg/dL (2.7-4.5); SODIUM SERUM 133 mmol/L (136-145); UREA NITROGEN, BLOOD 39 mg/dL (8-21)
[2021-12-18] MEDS ORDERED: MINERAL OIL 133 ML ENEMA RC ONE (08:00)
[2021-12-18] MEDS ORDERED: HYDROCHLOROTHIAZIDE 12.5 MG CAPSULE (HCTZ) PO SCH (09:00)
[2021-12-18] MEDS: PREGABALIN 25 MG CAPSULE (LYRICA) PO SCH (09:00)
[2021-12-18] MEDS: POLYETHYLENE GLYCOL 3350, 17 GM/ POWD.PACK PO SCH ×2 (09:12→21:00)
[2021-12-18] MEDS: INSULIN NPH/REGULAR 70-30, 100 UNITS/ML, 10 ML VIAL SQ SCH ×2 (09:26→21:02)
[2021-12-18 09:44] LABS: ERYTHROCYTE SEDIMENTATION RATE 16 MM/HR (0-15)
[2021-12-18] MEDS: NOREPINEPHRINE BITARTRATE 16 MG in D5W 234 ML IV PRN (10:26)
[2021-12-18 11:19] LABS: C-REACTIVE PROTEIN QUANT 25.1 mg/dL (0-0.5)
[2021-12-18] MEDS: ATORVASTATIN 20 MG TABLET PO SCH (21:00)
[2021-12-19] VITALS (25 sets, daily range): BP systolic 92–151
[2021-12-19] MEDS: D5/0.45 NS 1,000 ML IV SCH ×4 (01:00→21:57)
[2021-12-19] MEDS: PIPERACILLIN/TAZOBACTAM 2.25 GM in NS 50 ML IV SCH ×2 (05:41→11:17)
[2021-12-19] MEDS: LEVOTHYROXINE SODIUM 0.025 MG TABLET PO SCH (06:49)
[2021-12-19 07:18] LABS: INR 1.2 (0.80-1.20); PROTHROMBIN TIME 12.5 SECS (9.5-12.5)
[2021-12-19] MEDS: PREGABALIN 25 MG CAPSULE (LYRICA) PO SCH (08:46)
[2021-12-19] MEDS: POLYETHYLENE GLYCOL 3350, 17 GM/ POWD.PACK PO SCH ×2 (08:46→21:28)
[2021-12-19] MEDS: INSULIN NPH/REGULAR 70-30, 100 UNITS/ML, 10 ML VIAL SQ SCH ×2 (08:46→21:53)
[2021-12-19] MEDS: LINEZOLID 300 ML IV SCH ×2 (08:49→21:28)
[2021-12-19 09:21] LABS: BASOPHILS % (AUTO) 0.2 % (0.0-2.0); EOSINOPHILS % (AUTO) 0.1 % (0.0-4.0); HEMATOCRIT 34.2 % (36-54); HEMOGLOBIN 11.7 g/dL (14.0-18.0); LYMPHOCYTES # (AUTO) 0.3 K/uL (1.0-5.5); LYMPHOCYTES % (AUTO) 2.4 % (20.5-51.5); MEAN CORPUSCULAR HEMOGLOBIN 31 pg (27-31); MEAN CORPUSCULAR HGB CONC 34 % (32-36); MEAN CORPUSCULAR VOLUME 90 fL (79.0-98.0); MONOCYTES # (AUTO) 0.2 K/uL (0.0-1.0); MONOCYTES % (AUTO) 1.2 % (1.7-9.3); NEUTROPHILS # (AUTO) 12.8 K/uL (1.8-7.7); PLATELET COUNT (AUTO) 66 K/uL (130-430); RED BLOOD CELL COUNT(AUTO) 3.81 MIL/uL (4.2-6.2); RED CELL DISTRIBUTION WIDTH 15.7 % (9.0-15.0); WHITE BLOOD COUNT (AUTO) 13.3 K/uL (4.8-10.8)
[2021-12-19 09:41] LABS: ALANINE AMINOTRANSFERASE 75 U/L (12-78); ALBUMIN 1.9 g/dL (3.4-4.8); ANION GAP 12 (5-15); ASPARTATE AMINOTRANSFERASE 64 U/L (10-37); CALCIUM 7.6 mg/dL (8.4-11.0); CHLORIDE 103 mmol/L (98-107); CREATININE 2.39 mg/dL (0.55-1.30); GLUCOSE 105 mg/dL (70-99); PHOSPHORUS 3.4 mg/dL (2.7-4.5); POTASSIUM 4.1 mmol/L (3.5-5.1); SODIUM SERUM 135 mmol/L (136-145); TOTAL BILIRUBIN 1.1 mg/dL (0.0-1.0); UREA NITROGEN, BLOOD 45 mg/dL (8-21)
[2021-12-19] MEDS ORDERED: MIDAZOLAM HCL 5 MG/5 ML VIAL IVP ONE (10:00)
[2021-12-19 10:34] LABS: VANCOMYCIN,RANDOM 7.9 ug/mL
[2021-12-19] MEDS: NOREPINEPHRINE BITARTRATE 16 MG in D5W 234 ML IV PRN (11:18)
[2021-12-19 12:08] LABS: ERYTHROCYTE SEDIMENTATION RATE 34 MM/HR (0-15)
[2021-12-19 13:49] LABS: NEUTROPHILS % (AUTO) 96.1 % (40.0-70.0)
[2021-12-19] MEDS: MEROPENEM 1 GM in NS 100 ML IV SCH (17:06)
[2021-12-19] MEDS: ATORVASTATIN 20 MG TABLET PO SCH (21:29)
[2021-12-19] MEDS: HYDROcodone/ACETAMIN 10-325 MG TAB PO PRN (21:31)
[2021-12-19] MEDS: INSULIN REGULAR, HUMAN 100 UNITS/ML, 10 ML VIAL (humuLIN R) SUBCUT PRN (21:47)
[2021-12-19] MEDS: IPRATROPIUM BROM 0.5 MG/2.5 ML VIAL.NEB (ATROVENT) INH PRN (23:59)
[2021-12-20] VITALS (24 sets, daily range): BP systolic 77–136
[2021-12-20] MEDS: D5/0.45 NS 1,000 ML IV SCH ×4 (03:45→20:41)
[2021-12-20] MEDS: MEROPENEM 1 GM in NS 100 ML IV SCH ×2 (05:07→17:12)
[2021-12-20] MEDS: LEVOTHYROXINE SODIUM 0.025 MG TABLET PO SCH (06:05)
[2021-12-20 06:52] LABS: BASOPHILS % (AUTO) 0.1 % (0.0-2.0); EOSINOPHILS % (AUTO) 0.3 % (0.0-4.0); HEMATOCRIT 31.5 % (36-54); HEMOGLOBIN 10.7 g/dL (14.0-18.0); LYMPHOCYTES # (AUTO) 0.2 K/uL (1.0-5.5); LYMPHOCYTES % (AUTO) 1.8 % (20.5-51.5); MEAN CORPUSCULAR HEMOGLOBIN 30 pg (27-31); MEAN CORPUSCULAR HGB CONC 34 % (32-36); MEAN CORPUSCULAR VOLUME 90 fL (79.0-98.0); MONOCYTES # (AUTO) 0.1 K/uL (0.0-1.0); MONOCYTES % (AUTO) 0.6 % (1.7-9.3); NEUTROPHILS # (AUTO) 10.8 K/uL (1.8-7.7); NEUTROPHILS % (AUTO) 97.2 % (40.0-70.0); RED BLOOD CELL COUNT(AUTO) 3.52 MIL/uL (4.2-6.2); RED CELL DISTRIBUTION WIDTH 16.3 % (9.0-15.0); WHITE BLOOD COUNT (AUTO) 11.1 K/uL (4.8-10.8)
[2021-12-20 07:44] LABS: ANION GAP 12 (5-15); CALCIUM 7.9 mg/dL (8.4-11.0); CHLORIDE 99 mmol/L (98-107); CREATININE 2.54 mg/dL (0.55-1.30); GLUCOSE 83 mg/dL (70-99); POTASSIUM 3.8 mmol/L (3.5-5.1); SODIUM SERUM 133 mmol/L (136-145); UREA NITROGEN, BLOOD 50 mg/dL (8-21)
[2021-12-20 07:56] LABS: PLATELET COUNT (AUTO) 42 K/uL (130-430)
[2021-12-20] MEDS ORDERED: ACETYLCYSTEINE 10% 4 ML VIAL (RT) INH ONE (08:15)
[2021-12-20] MEDS: ALBUTEROL SULFATE 0.083% 2.5 MG/3 ML VIAL.NEB INH PRN ×2 (08:22)
[2021-12-20] MEDS: POLYETHYLENE GLYCOL 3350, 17 GM/ POWD.PACK PO SCH ×2 (09:00→20:45)
[2021-12-20] MEDS: PREGABALIN 25 MG CAPSULE (LYRICA) PO SCH (09:00)
[2021-12-20 09:04] LABS: C-REACTIVE PROTEIN QUANT 41.9 mg/dL (0-0.5)
[2021-12-20 09:42] LABS: ERYTHROCYTE SEDIMENTATION RATE 63 MM/HR (0-15)
[2021-12-20] MEDS: LINEZOLID 300 ML IV SCH ×2 (10:05→20:54)
[2021-12-20] MEDS: INSULIN NPH/REGULAR 70-30, 100 UNITS/ML, 10 ML VIAL SQ SCH ×2 (10:47→20:50)
[2021-12-20] MEDS: INSULIN REGULAR, HUMAN 100 UNITS/ML, 10 ML VIAL (humuLIN R) SUBCUT PRN ×3 (12:54→20:48)
[2021-12-20] MEDS: ALBUTEROL SULFATE 0.083% 2.5 MG/3 ML VIAL.NEB INH SCH ×2 (13:04→20:02)
[2021-12-20] MEDS: ACETYLCYSTEINE 20% 4 ML VIAL (RT) INH SCH ×2 (13:04→20:02)
[2021-12-20] MEDS: ATORVASTATIN 20 MG TABLET PO SCH (20:45)
[2021-12-21] VITALS (28 sets, daily range): BP systolic 84–132
[2021-12-21] MEDS: ALBUTEROL SULFATE 0.083% 2.5 MG/3 ML VIAL.NEB INH SCH ×4 (00:35→20:22)
[2021-12-21] MEDS: ACETYLCYSTEINE 20% 4 ML VIAL (RT) INH SCH ×4 (00:35→20:22)
[2021-12-21] MEDS: MEROPENEM 1 GM in NS 100 ML IV SCH ×2 (06:00→18:02)
[2021-12-21] MEDS: D5/0.45 NS 1,000 ML IV SCH (06:25)
[2021-12-21] MEDS: LEVOTHYROXINE SODIUM 0.05 MG TABLET PO SCH (07:00)
[2021-12-21] MEDS: PREGABALIN 25 MG CAPSULE (LYRICA) PO SCH (07:48)
[2021-12-21] MEDS: POLYETHYLENE GLYCOL 3350, 17 GM/ POWD.PACK PO SCH ×2 (07:49→20:50)
[2021-12-21] MEDS: INSULIN NPH/REGULAR 70-30, 100 UNITS/ML, 10 ML VIAL SQ SCH ×2 (07:49→20:52)
[2021-12-21 08:15] LABS: BASOPHILS % (AUTO) 0.3 % (0.0-2.0); EOSINOPHILS % (AUTO) 0.1 % (0.0-4.0); HEMATOCRIT 30.4 % (36-54); HEMOGLOBIN 10.2 g/dL (14.0-18.0); LYMPHOCYTES # (AUTO) 0.2 K/uL (1.0-5.5); LYMPHOCYTES % (AUTO) 1.8 % (20.5-51.5); MEAN CORPUSCULAR HEMOGLOBIN 31 pg (27-31); MEAN CORPUSCULAR HGB CONC 34 % (32-36); MEAN CORPUSCULAR VOLUME 91 fL (79.0-98.0); MONOCYTES # (AUTO) 0.1 K/uL (0.0-1.0); MONOCYTES % (AUTO) 0.6 % (1.7-9.3); NEUTROPHILS % (AUTO) 97.2 % (40.0-70.0); RED BLOOD CELL COUNT(AUTO) 3.34 MIL/uL (4.2-6.2); RED CELL DISTRIBUTION WIDTH 16.1 % (9.0-15.0); WHITE BLOOD COUNT (AUTO) 13.4 K/uL (4.8-10.8)
[2021-12-21] MEDS: IPRATROPIUM BROM 0.5 MG/2.5 ML VIAL.NEB (ATROVENT) INH PRN (08:26)
[2021-12-21 08:30] LABS: ALANINE AMINOTRANSFERASE 80 U/L (12-78); ALBUMIN 1.6 g/dL (3.4-4.8); ANION GAP 13 (5-15); ASPARTATE AMINOTRANSFERASE 128 U/L (10-37); CALCIUM 7.4 mg/dL (8.4-11.0); CHLORIDE 96 mmol/L (98-107); CREATININE 2.81 mg/dL (0.55-1.30); GLUCOSE 97 mg/dL (70-99); PHOSPHORUS 6.5 mg/dL (2.7-4.5); SODIUM SERUM 128 mmol/L (136-145); TOTAL BILIRUBIN 0.7 mg/dL (0.0-1.0); UREA NITROGEN, BLOOD 64 mg/dL (8-21)
[2021-12-21 08:46] LABS: PLATELET COUNT (AUTO) 24 K/uL (130-430)
[2021-12-21] MEDS: PANTOPRAZOLE SODIUM 40 MG/VIAL (PROTONIX) IVP SCH ×2 (09:00→20:50)
[2021-12-21 09:15] LABS: PROTHROMBIN TIME 10.4 SECS (9.5-12.5)
[2021-12-21] MEDS ORDERED: SODIUM BICARBONATE 8.4% JECT 50 MEQ/50 ML SYRINGE IVP ONE ×2 (09:15→13:30)
[2021-12-21] MEDS ORDERED: PROPOFOL DRIP 100 ML IV ONE (09:20)
[2021-12-21] MEDS: LINEZOLID 300 ML IV SCH ×2 (09:59→20:50)
[2021-12-21 10:10] LABS: ERYTHROCYTE SEDIMENTATION RATE 60 MM/HR (0-15)
[2021-12-21] MEDS ORDERED: PROPOFOL DRIP 100 ML IV PRN (10:15)
[2021-12-21 10:56] LABS: C-REACTIVE PROTEIN QUANT 37.3 mg/dL (0-0.5)
[2021-12-21] MEDS: NACL 0.9% 1,000 ML IV SCH ×2 (11:35→20:54)
[2021-12-21] MEDS ORDERED: SODIUM BICARBONATE 8.4% JECT 50 MEQ/50 ML SYRINGE ONE (13:35)
[2021-12-21] MEDS: SODIUM BICARBONATE 8.4% JECT 150 MEQ in D5W 1,000 ML IVP SCH ×2 (14:26→14:35)
[2021-12-21] MEDS ORDERED: ROCURONIUM BROMIDE 10 MG/ML (ZEMURON) ONE (16:00)
[2021-12-21] MEDS ORDERED: ETOMIDATE 20 MG/ 10 ML VIAL (AMIDATE) ONE (16:00)
[2021-12-21] MEDS: NOREPINEPHRINE BITARTRATE 16 MG in D5W 234 ML IV PRN (16:06)
[2021-12-21] MEDS ORDERED: ROCURONIUM BROMIDE 10 MG/ML (ZEMURON) IV ONE (18:00)
[2021-12-21] MEDS ORDERED: ETOMIDATE 20 MG/ 10 ML VIAL (AMIDATE) IVP ONE (18:00)
[2021-12-21] MEDS: methylPREDNISolone SOD SUCC/PF 62.5 MG/ML VIAL IVP SCH ×2 (18:02→23:35)
[2021-12-22] VITALS (31 sets, daily range): BP systolic 73–158
[2021-12-22] MEDS ORDERED: NOREPINEPHRINE 4 MG/4 ML VIAL IV ONE ×2 (05:11→18:56)
[2021-12-22] MEDS: MEROPENEM 1 GM in NS 100 ML IV SCH ×2 (05:13→17:01)
[2021-12-22] MEDS: methylPREDNISolone SOD SUCC/PF 62.5 MG/ML VIAL IVP SCH ×3 (05:13→17:03)
[2021-12-22] MEDS: NACL 0.9% 1,000 ML IV SCH ×2 (05:14→20:52)
[2021-12-22] MEDS: LEVOTHYROXINE SODIUM 0.05 MG TABLET PO SCH (07:00)
[2021-12-22 07:02] LABS: ANION GAP 12 (5-15); CHLORIDE 94 mmol/L (98-107); CREATININE 2.79 mg/dL (0.55-1.30); GLUCOSE 165 mg/dL (70-99); PHOSPHORUS 6.8 mg/dL (2.7-4.5); POTASSIUM 4.3 mmol/L (3.5-5.1); SODIUM SERUM 129 mmol/L (136-145); UREA NITROGEN, BLOOD 66 mg/dL (8-21)
[2021-12-22] MEDS: ALBUTEROL SULFATE 0.083% 2.5 MG/3 ML VIAL.NEB INH SCH ×3 (07:25→21:00)
[2021-12-22] MEDS: ACETYLCYSTEINE 20% 4 ML VIAL (RT) INH SCH ×3 (07:26→21:00)
[2021-12-22 08:01] LABS: HEMATOCRIT 23.1 % (36-54); HEMOGLOBIN 8.1 g/dL (14.0-18.0); MEAN CORPUSCULAR HEMOGLOBIN 32 pg (27-31); MEAN CORPUSCULAR HGB CONC 35 % (32-36); MEAN CORPUSCULAR VOLUME 90 fL (79.0-98.0); RED BLOOD CELL COUNT(AUTO) 2.57 MIL/uL (4.2-6.2); RED CELL DISTRIBUTION WIDTH 16.5 % (9.0-15.0); WHITE BLOOD COUNT (AUTO) 6.4 K/uL (4.8-10.8)
[2021-12-22 08:11] LABS: CALCIUM 6.7 mg/dL (8.4-11.0)
[2021-12-22] MEDS: PANTOPRAZOLE SODIUM 40 MG/VIAL (PROTONIX) IVP SCH ×2 (09:00→20:46)
[2021-12-22] MEDS: POLYETHYLENE GLYCOL 3350, 17 GM/ POWD.PACK PO SCH ×2 (09:00→20:46)
[2021-12-22] MEDS: INSULIN NPH/REGULAR 70-30, 100 UNITS/ML, 10 ML VIAL SQ SCH ×2 (09:00→20:41)
[2021-12-22 09:27] LABS: PLATELET COUNT (AUTO) 37 K/uL (130-430)
[2021-12-22 09:41] LABS: C-REACTIVE PROTEIN QUANT 26.4 mg/dL (0-0.5)
[2021-12-22] MEDS ORDERED: LORazepam 2 MG/ML VIAL IVP ONE (10:00)
[2021-12-22] MEDS ORDERED: HEPARIN SODIUM,PORCINE 5,000 UNITS/ML VIAL ONE (10:38)
[2021-12-22] MEDS ORDERED: HEPARIN SODIUM,PORCINE 5,000 UNITS/ML VIAL MC ONE (11:00)
[2021-12-22 11:56] LABS: ERYTHROCYTE SEDIMENTATION RATE 53 MM/HR (0-15)
[2021-12-22 14:32] LABS: BAND % (MANUAL) 24 % (0-6); BASOPHILS % (MANUAL) 0 % (0-2); EOSINOPHILS % (MANUAL) 0 % (0-7); LYMPHOCYTES % (MANUAL) 5 % (20-46); MONOCYTES % (MANUAL) 5 % (0-11)
[2021-12-22] MEDS ORDERED: HEPARIN SODIUM, PORCINE 10,000 UNITS/ 10 ML VIAL MC ONE (16:30)
[2021-12-23] VITALS (12 sets, daily range): BP systolic 17–113
[2021-12-23] MEDS ORDERED: NOREPINEPHRINE 4 MG/4 ML VIAL IV ONE (00:40)
[2021-12-23] MEDS: methylPREDNISolone SOD SUCC/PF 62.5 MG/ML VIAL IVP SCH ×2 (00:58→06:55)
[2021-12-23] MEDS: NOREPINEPHRINE BITARTRATE 16 MG in D5W 234 ML IV PRN ×2 (01:05→10:30)
[2021-12-23] MEDS: ALBUTEROL SULFATE 0.083% 2.5 MG/3 ML VIAL.NEB INH SCH (01:28)
[2021-12-23] MEDS: ACETYLCYSTEINE 20% 4 ML VIAL (RT) INH SCH ×2 (01:29→07:00)
[2021-12-23] MEDS: MEROPENEM 1 GM in NS 100 ML IV SCH (06:55)
[2021-12-23] MEDS: LEVOTHYROXINE SODIUM 0.05 MG TABLET PO SCH (07:08)
[2021-12-23 07:24] LABS: BASOPHILS # (AUTO) 0.1 K/uL (0.0-0.2); BASOPHILS % (AUTO) 0.5 % (0.0-2.0); EOSINOPHILS % (AUTO) 0.3 % (0.0-4.0); HEMOGLOBIN 7.1 g/dL (14.0-18.0); LYMPHOCYTES # (AUTO) 0.3 K/uL (1.0-5.5); LYMPHOCYTES % (AUTO) 1.5 % (20.5-51.5); MEAN CORPUSCULAR HEMOGLOBIN 32 pg (27-31); MEAN CORPUSCULAR HGB CONC 35 % (32-36); MEAN CORPUSCULAR VOLUME 93 fL (79.0-98.0); MONOCYTES % (AUTO) 0.3 % (1.7-9.3); NEUTROPHILS # (AUTO) 16.3 K/uL (1.8-7.7); NEUTROPHILS % (AUTO) 97.4 % (40.0-70.0); RED BLOOD CELL COUNT(AUTO) 2.18 MIL/uL (4.2-6.2); RED CELL DISTRIBUTION WIDTH 17.5 % (9.0-15.0); WHITE BLOOD COUNT (AUTO) 16.7 K/uL (4.8-10.8)
[2021-12-23 07:33] LABS: HEMATOCRIT 20.3 % (36-54); PLATELET COUNT (AUTO) 25 K/uL (130-430)
[2021-12-23] MEDS ORDERED: PHENYLEPHRINE HCL 100 MG in NS 240 ML IV PRN (08:15)
[2021-12-23] MEDS ORDERED: SODIUM BICARBONATE 8.4% JECT 50 MEQ/50 ML SYRINGE IVP ONE (09:00)
[2021-12-23] MEDS: PANTOPRAZOLE SODIUM 40 MG/VIAL (PROTONIX) IVP SCH (09:00)
[2021-12-23] MEDS: POLYETHYLENE GLYCOL 3350, 17 GM/ POWD.PACK PO SCH (09:00)
[2021-12-23] MEDS: INSULIN NPH/REGULAR 70-30, 100 UNITS/ML, 10 ML VIAL SQ SCH (09:00)
[2021-12-23 09:30] LABS: ALBUMIN 1.1 g/dL (3.4-4.8); ANION GAP 26 (5-15); CHLORIDE 94 mmol/L (98-107); CREATININE 2.59 mg/dL (0.55-1.30); PHOSPHORUS 8.9 mg/dL (2.7-4.5); SODIUM SERUM 130 mmol/L (136-145); TOTAL BILIRUBIN 1.3 mg/dL (0.0-1.0); UREA NITROGEN, BLOOD 54 mg/dL (8-21)
[2021-12-23 09:42] LABS: ERYTHROCYTE SEDIMENTATION RATE 82 MM/HR (0-15)
[2021-12-23 10:16] LABS: POTASSIUM 6.2 mmol/L (3.5-5.1)
[2021-12-23 10:17] LABS: GLUCOSE 33 mg/dL (70-99)
[2021-12-23 10:18] LABS: CALCIUM 6.1 mg/dL (8.4-11.0)
[2021-12-23 10:19] LABS: ALANINE AMINOTRANSFERASE 124 U/L (12-78); ASPARTATE AMINOTRANSFERASE 387 U/L (10-37)
[2021-12-23] MEDS ORDERED: MORPHINE 4 MG INJ. 4 MG/ML VIAL IVP PRN (10:45)
[2021-12-23 15:07] LABS: C-REACTIVE PROTEIN QUANT 28.5 mg/dL (0-0.5)
== END 2021-12-23 11:43 | DRG 871 ==
LOC: SED 10:55 → SMU 14:14 → SIC 15:20
PROVIDERS: ADMIT Preventive Medicine Preventive Medicine/Occupational Environmental Medicine; ATTEND Preventive Medicine Preventive Medicine/Occupational Environmental Medicine
PROC: 05HM33Z Insertion of Infusion Device into Right Internal Jugular Vein, Percutaneous Approach (ICD-10-PCS; principal; 2021-12-17)
PROC: B543ZZA Ultrasonography of Right Jugular Veins, Guidance (ICD-10-PCS; 2021-12-17)
PROC: 0T9030Z Drainage of Right Kidney with Drainage Device, Percutaneous Approach (ICD-10-PCS; 2021-12-19)
PROC: 5A1935Z Respiratory Ventilation, Less than 24 Consecutive Hours (ICD-10-PCS; 2021-12-21)
PROC: 5A1945Z Respiratory Ventilation, 24-96 Consecutive Hours (ICD-10-PCS; 2021-12-21)
PROC: 0BH17EZ Insertion of Endotracheal Airway into Trachea, Via Natural or Artificial Opening (ICD-10-PCS; 2021-12-21)
PROC: 0B9D8ZX Drainage of Right Middle Lung Lobe, Via Natural or Artificial Opening Endoscopic, Diagnostic (ICD-10-PCS; 2021-12-21)
PROC: 06HY33Z Insertion of Infusion Device into Lower Vein, Percutaneous Approach (ICD-10-PCS; 2021-12-22)
DX: A41.9 Sepsis, unspecified organism (principal); I46.9 Cardiac arrest, cause unspecified; R65.21 Severe sepsis with septic shock; J69.0 Pneumonitis due to inhalation of food and vomit; J96.00 Acute respiratory failure, unspecified whether with hypoxia or hypercapnia; E87.1 Hypo-osmolality and hyponatremia; N17.9 Acute kidney failure, unspecified; N13.6 Pyonephrosis; E87.2 Acidosis; N39.0 Urinary tract infection, site not specified; K92.2 Gastrointestinal hemorrhage, unspecified; Z20.822 Contact with and (suspected) exposure to COVID-19; F17.210 Nicotine dependence, cigarettes, uncomplicated; I95.9 Hypotension, unspecified; J44.9 Chronic obstructive pulmonary disease, unspecified; K56.41 Fecal impaction; E03.9 Hypothyroidism, unspecified; R79.89 Other specified abnormal findings of blood chemistry; E78.5 Hyperlipidemia, unspecified; E88.09 Other disorders of plasma-protein metabolism, not elsewhere classified; E11.65 Type 2 diabetes mellitus with hyperglycemia; R74.01 Elevation of levels of liver transaminase levels; D64.9 Anemia, unspecified; I12.9 Hypertensive chronic kidney disease with stage 1 through stage 4 chronic kidney disease, or unspecified chronic kidney disease; N18.9 Chronic kidney disease, unspecified; B96.20 Unspecified Escherichia coli [E. coli] as the cause of diseases classified elsewhere; D69.6 Thrombocytopenia, unspecified; E11.22 Type 2 diabetes mellitus with diabetic chronic kidney disease; E83.39 Other disorders of phosphorus metabolism; E83.41 Hypermagnesemia; E83.52 Hypercalcemia; K81.9 Cholecystitis, unspecified; Z85.528 Personal history of other malignant neoplasm of kidney; Z85.46 Personal history of malignant neoplasm of prostate; Z79.4 Long term (current) use of insulin; Z87.442 Personal history of urinary calculi; Z90.5 Acquired absence of kidney
CPT/HCPCS: 36415; 36600; 50432; 71045; 76376; 76700-TC; 77012; 80048; 80053; 80202; 81000; 82533; 82803-TC; 82962; 83605; 83690; 83735; 84100; 84484; 85007; 85025; 85027; 85384; 85610-TC; 85651-TC; 85730-TC; 86140; 86900; 86901; 87040; 87070-TC; 87081; 87086; 87205-TC; 90935; 93005; 94002; 94003; 94640; 94660; 96365; 96375; 99291; C1750; C9113; J1644; J1815; J2020; J2060; J2185; J2250; J2270; J2370; J2543; J2704; J2930; J3370; J3490; J7050; J7060; J7608; J7613; P9034